=== PATIENT | female | born 1975 | race African-American/Black ===

== ENCOUNTER 2021-03-23 08:13 | Emergency (ER) | payer SELFPAY ==
[~2021-03-23] VITALS: Ht 162.6 cm; Wt 59.0 kg
[2021-03-23] MEDS ORDERED: HYDROCODONE/ACETAMINOPHEN 5/325MG TABLET PO ONE (08:45)
[2021-03-23] MEDS ORDERED: IBUPROFEN 400MG TABLET PO ONE (08:45)
[2021-03-23] MEDS ORDERED: HYDR25SU37 RC (08:49)
[2021-03-23] MEDS ORDERED: DOCU-138 MT (08:53)
[2021-03-23] MEDS ORDERED: PSYL0.4C2 MT (08:53)
[2021-03-23 09:54] VITALS: BP 110/64
== END 2021-03-23 09:58 | disposition home or self-care (01) ==
LOC: ER 08:13
DX: K64.4 Residual hemorrhoidal skin tags (principal)
CPT/HCPCS: 99283; Z7610

== ENCOUNTER 2021-07-01 20:13 | Inpatient (IN) | payer SELFPAY ==
[~2021-07-01] VITALS: Ht 167.6 cm; Wt 55.0 kg
[~2021-07-01 20:13] MED LIST: DOCU-138 MT; HYDR25SU37 RC; PSYL0.4C2 MT
[2021-07-01] MEDS ORDERED: ONDANSETRON HCL 4MG/2ML INJ IV STA (20:54)
[2021-07-01] MEDS ORDERED: KETOROLAC 30MG/ML VIAL IV STA (20:54)
[2021-07-01 21:41] LABS: MEAN CORPUSCULAR HEMOGLOBIN 16.3 pg (28.0-32.0); MEAN CORPUSCULAR VOLUME 60.3 fL (81.0-99.0); MEAN PLATELET VOLUME 8.4 fl (7.4-10.4); PLATELET 297 x1000/uL (130-400); RED BLOOD CELL COUNT 3.83 mill/uL (4.2-5.4); RED CELL DISTRIBUTION WIDTH 23.4 % (11.6-14.6)
[2021-07-01 21:43] LABS: CHLORIDE 106 mEq/L (98-107)
[2021-07-01 21:45] LABS: CLARITY URINE CLEAR (CLEAR); COLOR URINE YELLOW (YELLOW); KETONES URINE NEGATIVE (NEGATIVE); LEUKOCYTE ESTERASE URINE 1+ (NEGATIVE); NITRITE URINE NEGATIVE (NEGATIVE); OCCULT BLOOD URINE NEGATIVE (NEGATIVE); PH URINE 6.5 (4.5-8.0); PROTEIN URINE 2+ (NEGATIVE); SPECIFIC GRAVITY URINE 1.023 (1.005-1.030)
[2021-07-01 21:46] LABS: HEMATOCRIT. 23.1 % (36.0-48.0); HEMOGLOBIN. 6.2 g/dL (12.0-16.0)
[2021-07-01 21:49] LABS: HCG SCREEN NEGATIVE
[2021-07-01 23:13] LABS: PLATELET ESTIMATE NORMAL
[2021-07-02 09:16] VITALS: BP 136/70
[2021-07-02] MEDS ORDERED: DOXY100C5 MT (14:37)
[2021-07-02] MEDS ORDERED: IBUP-2029 MT (14:38)
== END 2021-07-02 09:18 | disposition left against medical advice (07) | DRG 663 ==
LOC: ER 20:13 → MICUSO 23:08
PROVIDERS: ADMIT Family Medicine; ATTEND Family Medicine
PROC: 30233N1 Transfusion of Nonautologous Red Blood Cells into Peripheral Vein, Percutaneous Approach (ICD-10-PCS; principal; 2021-07-01)
DX: D64.9 Anemia, unspecified (principal); Z79.899 Other long term (current) drug therapy
CPT/HCPCS: 36415; 74176; 80053; 81003; 84703; 85025; 86850; 86900; 86920; 93005; 99291; J1885; J2405; P9016

== ENCOUNTER 2021-07-02 12:50 | Emergency (ER) | payer SELFPAY ==
[~2021-07-02] VITALS: Ht 167.6 cm; Wt 69.0 kg
[2021-07-02] MEDS ORDERED: ACETAMINOPHEN 325MG TABLET PO STA (13:04)
[2021-07-02 13:25] LABS: HEMATOCRIT. 26.3 % (36.0-48.0); HEMOGLOBIN. 7.2 g/dL (12.0-16.0); MEAN CORPUSCULAR HEMOGLOBIN 17.7 pg (28.0-32.0); MEAN CORPUSCULAR VOLUME 64.6 fL (81.0-99.0); MEAN PLATELET VOLUME 8.4 fl (7.4-10.4); PLATELET 280 x1000/uL (130-400); RED BLOOD CELL COUNT 4.08 mill/uL (4.2-5.4); RED CELL DISTRIBUTION WIDTH 25.7 % (11.6-14.6)
[2021-07-02 13:27] LABS: CHLORIDE 107 mEq/L (98-107)
[2021-07-02 13:43] LABS: PLATELET ESTIMATE NORMAL
[2021-07-02] MEDS ORDERED: DOXY100C5 MT (14:37)
[2021-07-02] MEDS ORDERED: IBUP-2029 MT (14:38)
[2021-07-02] MEDS ORDERED: CEFTRIAXONE SODIUM 1 G/VIAL IM ONE (14:45)
[2021-07-02 15:42] VITALS: BP 113/70
== END 2021-07-02 16:27 | disposition home or self-care (01) ==
LOC: ER 12:50
DX: R10.2 Pelvic and perineal pain (principal); D64.9 Anemia, unspecified; F17.290 Nicotine dependence, other tobacco product, uncomplicated; F14.10 Cocaine abuse, uncomplicated; F12.10 Cannabis abuse, uncomplicated; Z79.899 Other long term (current) drug therapy
CPT/HCPCS: 36415; 80053; 85025; 96372; 99283; J0696

== ENCOUNTER 2022-05-05 19:22 | Emergency (ER) | payer SELFPAY ==
[~2022-05-05] VITALS: Ht 165.1 cm; Wt 68.0 kg
[~2022-05-05 19:22] MED LIST changes: +DOXY100C5 MT; +IBUP-2029 MT
[2022-05-05 19:42] VITALS: BP 142/84
== END 2022-05-05 21:33 | disposition left against medical advice (07) ==
LOC: ER 19:22
DX: Z53.21 Procedure and treatment not carried out due to patient leaving prior to being seen by health care provider (principal)

== ENCOUNTER 2022-06-02 00:54 | Emergency (ER) | payer SELFPAY ==
[~2022-06-02] VITALS: Ht 157.5 cm; Wt 69.0 kg
[2022-06-02 01:10] VITALS: BP 116/76
[2022-06-02] MEDS ORDERED: CLOT15CR27 TP (03:49)
== END 2022-06-02 04:25 | disposition home or self-care (01) ==
LOC: ER 00:54
DX: B35.6 Tinea cruris (principal); F14.90 Cocaine use, unspecified, uncomplicated; F12.90 Cannabis use, unspecified, uncomplicated
CPT/HCPCS: 81025; 99282

== ENCOUNTER 2024-01-18 12:03 | Emergency (ER) | payer SELFPAY ==
[~2024-01-18] VITALS: Ht 160 cm; Wt 72.0 kg
[~2024-01-18 12:03] MED LIST changes: +CLOT15CR27 TP
[2024-01-18 12:10] VITALS: BP 143/51; RESP 20; TEMP 98.5; O2SAT 100
[2024-01-18 12:11] VITALS: PULSE 86
[2024-01-18 13:21] LABS: CLARITY URINE CLEAR (CLEAR); COLOR URINE YELLOW (YELLOW); GLUCOSE URINE NEGATIVE (NEGATIVE); KETONES URINE NEGATIVE (NEGATIVE); LEUKOCYTE ESTERASE URINE 1+ (NEGATIVE); NITRITE URINE NEGATIVE (NEGATIVE); OCCULT BLOOD URINE 1+ (NEGATIVE); PH URINE 6.5 (4.5-8.0); PROTEIN URINE NEGATIVE (NEGATIVE); SPECIFIC GRAVITY URINE 1.006 (1.005-1.030); UROBILINOGEN URINE 0.2 E.U./dL (0.2-1.0)
[2024-01-18 13:25] LABS: BASOPHILS % 0.8 % (0.0-2.0); EOSINOPHILS % 1.7 % (0.0-5.0); HEMATOCRIT. 28.1 % (36.0-48.0); HEMOGLOBIN. 8.3 g/dL (12.0-16.0); LYMPHOCYTES % 27.7 % (20.0-50.0); MEAN CORPUSCULAR HGB CONC 29.6 g/dL (31.0-37.0); MEAN CORPUSCULAR VOLUME 67.7 fL (81.0-99.0); MEAN PLATELET VOLUME 7.5 fl (7.4-10.4); MONOCYTES % 7.3 % (2.0-8.0); NEUTROPHILS % 62.5 % (40.0-76.0); PLATELET 383 x1000/uL (130-400); RED BLOOD CELL COUNT 4.14 mill/uL (4.2-5.4); RED CELL DISTRIBUTION WIDTH 19.7 % (11.6-14.6); WHITE BLOOD COUNT 10.9 x1000/uL (4.5-11.0)
[2024-01-18 13:28] LABS: ADD RBC MORPHOLOGY YES; DIFFERENTIAL COMMENT 1
[2024-01-18 13:31] LABS: CARBON DIOXIDE 27 mEq/L (21-32); CHLORIDE 104 mEq/L (98-107); POTASSIUM 3.8 mEq/L (3.5-5.1); SODIUM 137 mEq/L (136-145)
[2024-01-18 13:32] LABS: CALCIUM 10.4 mg/dL (8.7-10.4)
[2024-01-18 13:36] LABS: CREATININE 0.8 mg/dL (0.6-1.0)
[2024-01-18 13:37] LABS: GLUCOSE 62 mg/dL (70-105); UREA NITROGEN BLOOD 16 mg/dL (9-23)
[2024-01-18 13:39] LABS: ALANINE AMINOTRANSFERASE 17 IU/L (10-49); ALBUMIN 4.9 g/dL (3.2-4.8); ASPARTATE AMINOTRANSFERASE 25 IU/L (<34); BILIRUBIN TOTAL 0.4 mg/dL (0.1-1.0); PROTEIN TOTAL 7.6 g/dL (6.0-8.3)
[2024-01-18 13:44] LABS: ANISOCYTOSIS 2+; MICROCYTOSIS 3+; PLATELET ESTIMATE NORMAL
[2024-01-18 13:45] LABS: HYPOCHROMASIA 2+
[2024-01-18 13:46] LABS: RBC URINE 0-2 /hpf (0-2); SQUAMOUS EPITHELIAL CELL URINE FEW /lpf (RARE/1+); WBC URINE 0-2 /hpf (0-2)
[2024-01-18 13:47] LABS: BACTERIA URINE 1+; YEAST URINE NONE SEEN
[2024-01-18 13:55] LABS: BILIRUBIN DIRECT < 0.1 mg/dL (<=3.0)
[2024-01-18] MEDS: IBUPROFEN 600MG TABLET PO ONE (14:40)
[2024-01-18] MEDS ORDERED: METH-653 MT (15:53)
[2024-01-18] MEDS ORDERED: CEFTRIAXONE SODIUM 500MG VIAL IM ONE (17:00)
== END 2024-01-18 15:54 ==
LOC: ER 13:34
DX: M54.9 Dorsalgia, unspecified (principal); F14.90 Cocaine use, unspecified, uncomplicated; F12.90 Cannabis use, unspecified, uncomplicated
CPT/HCPCS: 36415; 74176; 80048; 80076; 81003; 81025; 85025; 99284